=== PATIENT | male | born 1965 | race Caucasian/White ===

== ENCOUNTER 2023-05-03 18:21 | Emergency (ER) | payer OTHER ==
[~2023-05-03] VITALS: Ht 167.6 cm; Wt 83.0 kg
[~2023-05-03 18:21] MED LIST: NEURONTIN300 MG PO; PERCOCET 5/3251 TAB PO; POLY119PG PO
[2023-05-03] MEDS ORDERED: SYNTHROID125 MCG PO (19:13)
[2023-05-03] MEDS ORDERED: ROSUVASTATIN CA40 MG PO (19:14)
[2023-05-03] MEDS ORDERED: LISINOPRIL2.5 MG PO (19:14)
[2023-05-03] MEDS ORDERED: HYDROCODONE/CHLORPHEN P-STIREX 5 ML ML PO STA ×2 (21:24→21:31)
[2023-05-03] MEDS ORDERED: CEFTRIAXONE SODIUM 2,000 MG VIAL IM STA (21:30)
[2023-05-03] MEDS ORDERED: ALBUTEROL SULFATE 3 ML/2.5 MG AMPUL.NEB IH SCH (21:30)
[2023-05-03] MEDS ORDERED: IPRATROPIUM BROMIDE 0.5 MG/2.5 ML AMPUL.NEB IH SCH (21:30)
[2023-05-03] MEDS ORDERED: KETOROLAC TROMETHAMINE 60 MG VIAL IM STA (21:31)
== END 2023-05-04 00:14 | disposition home or self-care (01) ==
LOC: ER 18:21
DX: J06.9 Acute upper respiratory infection, unspecified (principal); J45.991 Cough variant asthma; Z88.8 Allergy status to other drugs, medicaments and biological substances
CPT/HCPCS: 94640; 96372; 99283; J0696; J1885